=== PATIENT | female | born 2000 | race Caucasian/White ===

== ENCOUNTER 2019-02-06 11:10 | Emergency (ER) | payer BC ==
[2019-02-06] MEDS ORDERED: Morphine 4 MG/ML VIAL ONE (11:43)
--- NOTE | 2019-02-06 12:03 | RAD ---
4 views left knee. HISTORY: Injury with tear and dislocation AP, lateral and both oblique views left knee obtained. 4 views left knee demonstrates no evidence of left knee fractures, subluxations or bony lesions IMPRESSION: normal 4 views left knee.
[2019-02-06] MEDS ORDERED: Adacel (T-DAP) 0.5 ML SYRINGE ONE (13:04)
[2019-02-06] MEDS ORDERED: Bacitracin Zinc 1 Packet ONE (13:37)
== END 2019-02-06 13:59 | disposition home or self-care (01) ==
LOC: ERS 11:10
DX: S83.92XA Sprain of unspecified site of left knee, initial encounter (principal); G43.909 Migraine, unspecified, not intractable, without status migrainosus; F41.9 Anxiety disorder, unspecified; F32.9 Major depressive disorder, single episode, unspecified; W23.0XXA Caught, crushed, jammed, or pinched between moving objects, initial encounter
CPT/HCPCS: 90471; 90715; 96374; J2270